=== PATIENT | female | born 1970 | race Caucasian/White ===

== ENCOUNTER 2017-03-12 14:13 | Emergency (ER) | payer MEDICAID ==
[~2017-03-12] VITALS: Ht 154.9 cm; Wt 67.9 kg
[2017-03-12 14:19] VITALS: BP 144/97
[2017-03-12] MEDS ORDERED: LIDOCAINE-MPF 2% ,5ML ONE (14:59)
[2017-03-12] MEDS ORDERED: BUPIVACAINE 0.25% ONE (14:59)
[2017-03-12] MEDS ORDERED: LIDOCAINE 2%, 20ML SQ ONE (15:00)
[2017-03-12] MEDS ORDERED: BUPIVACAINE/PF-EPI 0.25% 1:200K SQ ONE (15:00)
== END 2017-03-12 15:17 | disposition home or self-care (01) ==
LOC: ED 15:01
DX: K04.7 Periapical abscess without sinus (principal); F41.9 Anxiety disorder, unspecified; M19.90 Unspecified osteoarthritis, unspecified site
CPT/HCPCS: 64400

== ENCOUNTER 2017-03-13 09:07 | Emergency (ER) | payer MEDICAID ==
[~2017-03-13] VITALS: Ht 154.9 cm; Wt 68.3 kg
[2017-03-13 09:09] VITALS: BP 123/82
== END 2017-03-13 10:47 | disposition home or self-care (01) ==
LOC: ED 10:30
DX: K02.9 Dental caries, unspecified (principal); G89.29 Other chronic pain; F17.200 Nicotine dependence, unspecified, uncomplicated
CPT/HCPCS: 99281

== ENCOUNTER → 2017-10-07 | Outpatient (CLI) | payer MEDICAID | END | disposition home or self-care (01) | LOC: EDSTATUS 13:45 → CFH 13:57 | PROVIDERS: ATTEND Genetic Counselor, MS | DX: R92.2 Inconclusive mammogram (principal); Z80.3 Family history of malignant neoplasm of breast | CPT/HCPCS: 77066 ==

== ENCOUNTER 2017-11-02 07:34 | Emergency (ER) | payer SELFPAY ==
[~2017-11-02] VITALS: Ht 154.9 cm; Wt 67.4 kg
[2017-11-02 07:36] VITALS: BP 137/72
[2017-11-02] MEDS ORDERED: DIPH,PERTUSS(ACELL),TET VAC/PF 0.5 ML IM-VACC ONE ×2 (07:52→08:00)
[2017-11-02] MEDS ORDERED: LIDOCAINE-MPF 2%, 2ML ONE ×2 (07:59)
[2017-11-02] MEDS ORDERED: SODIUM CHLORIDE FLUSH 10ML SYR IVF ONE (08:00)
[2017-11-02] MEDS ORDERED: MORPHINE SULFATE 4 MG/ML, 1ML IV PRN (08:00)
[2017-11-02] MEDS ORDERED: ONDANSETRON ODT 4 MG PO ONE (08:00)
[2017-11-02] MEDS ORDERED: LIDOCAINE-MPF 1%, 5ML INFIL ONE (08:00)
[2017-11-02] MEDS ORDERED: ONDANSETRON ODT 4 MG ONE (08:20)
[2017-11-02] MEDS ORDERED: AMPICILLIN/SULBACTAM 3 GM in SODIUM CHLORIDE 0.9% 100 ML IV ONE (08:30)
== END 2017-11-02 09:34 | disposition home or self-care (01) ==
LOC: ED 09:15
DX: L03.011 Cellulitis of right finger (principal); G89.29 Other chronic pain
CPT/HCPCS: 10060; 90471; 90715; 96365; 99284; J0295; Q0162

== ENCOUNTER 2019-10-15 20:54 | Inpatient (IN) | payer MEDICAID ==
[~2019-10-15] VITALS: Ht 154.9 cm; Wt 70.2 kg
--- NOTE | 2019-10-15 21:12 | NUR ---
KAVITHA ANDERSON AT BS NOW.
[2019-10-15] MEDS ORDERED: DIAZEPAM 5 MG/ML, 2ML IV ONE (21:30)
[2019-10-15] MEDS ORDERED: SODIUM CHLORIDE FLUSH 10ML SYR IVF ONE ×2 (21:30→23:00)
--- NOTE | 2019-10-15 21:30 | NUR ---
PT MOANING/CRYING D/T ABD PAIN. FRIEND/NEIGHBOR AT BS.
--- NOTE | 2019-10-15 21:39 | NUR ---
CT PENDING LAB/BETA/CREATINE.
[2019-10-15] MEDS ORDERED: DIAZEPAM 5 MG/ML, 2ML ONE (22:16)
--- NOTE | 2019-10-15 22:22 | NUR ---
IV ESTABLISHED BY ANOTHER RN AFTER 2 FAILED ATTEMPTS. PT MEDICATED PER ORDERS. AWAITING LABS & CT. PT UNDERSTANDS POC.
[2019-10-15 22:24] LABS: MEAN CORPUSCULAR HEMOGLOBIN 22.8 pg (27.0-34.8); MEAN CORPUSCULAR HGB CONC 31.6 g/dL (32.4-35.8); MEAN CORPUSCULAR VOLUME 72.2 fL (80-100); MEAN PLATELET VOLUME 8.2 fL (7.4-10.4); PLATELET COUNT 317 x10^3/uL (130-400); RED BLOOD COUNT 4.13 x10^6/uL (3.82-5.3); RED CELL DISTRIBUTION WIDTH 17.2 % (9.6-15.2)
[2019-10-15 22:35] LABS: ALANINE AMINOTRANSFERASE 26 U/L (12-78); ALBUMIN 3.4 g/dL (3.4-5.0); ANION GAP 5 mmol/L (5-15); CALCIUM 8.5 mg/dL (8.5-10.1); CHLORIDE 106 mmol/L (98-107); CREATININE 0.78 mg/dL (0.55-1.02)
--- NOTE | 2019-10-15 22:35 | NUR ---
ERP NOTIFIED THAT PT MORE TACHYCARDIC, HR 100s, TEMP 101.4. STILL IN MODERATE DISTRESS D/T ABD PAIN. ORDERS RC'VD.
[2019-10-15 22:40] LABS: ALKALINE PHOSPHATASE 89 U/L (45-117); BILIRUBIN,TOTAL 0.3 mg/dL (0.2-1.0); TOTAL PROTEIN 7.8 g/dL (6.4-8.2)
[2019-10-15 22:49] LABS: BASOPHILS # (AUTO) 0.04 x10^3/uL (0-0.1); BASOPHILS % (AUTO) 0 % (0-1); EOSINOPHILS # (AUTO) 0.08 x10^3/uL (0-0.4); EOSINOPHILS % (AUTO) 0 % (1-7); LYMPHOCYTES # (AUTO) 1.31 x10^3/uL (1-3.4); LYMPHOCYTES % (AUTO) 6 % (22-44); MD SCAN; MONOCYTES # (AUTO) 0.71 x10^3/uL (0.2-0.8); MONOCYTES % (AUTO) 4 % (2-9); NEUTROPHILS % (AUTO) 90 % (42-75)
[2019-10-15] MEDS ORDERED: CEFTRIAXONE PMX 1GM/50ML 50 ML ONE (22:51)
[2019-10-15] MEDS ORDERED: OMNIPAQUE 350 MG/ML, 100ML BOTTLE ONE (22:56)
[2019-10-15] MEDS ORDERED: ONDANSETRON 2MG/ML, 2ML ONE (22:58)
[2019-10-15] MEDS ORDERED: MORPHINE SULFATE 4 MG/ML, 1ML ONE (22:58)
[2019-10-15] MEDS ORDERED: CEFTRIAXONE PMX 1GM/50ML 50 ML IV ONE (23:00)
[2019-10-15] MEDS ORDERED: MORPHINE SULFATE 4 MG/ML, 1ML IVPush PRN (23:00)
[2019-10-15] MEDS ORDERED: ONDANSETRON 2MG/ML, 2ML IVPush ONE (23:00)
[2019-10-15] MEDS ORDERED: SODIUM CHLORIDE 0.9% 1,000ML IVBOLUS ONE ×2 (23:00→23:30)
--- NOTE | 2019-10-15 23:00 | NUR ---
PER ERP, PT DOES NOT NEED FULL SEPSIS WORKUP.
[2019-10-15] MEDS ORDERED: PARO40TA3 PO (23:06)
--- NOTE | 2019-10-15 23:25 | NUR ---
ER PA WAS IN TO RE-ASSESS PT. PT BEGAN MOANING AGAIN ABOUT LOWER ABD PAIN AFTER RECEIVING MORPHINE.
[2019-10-15] MEDS ORDERED: METRONIDAZOLE PMX 500MG/100ML 100 ML IV ONE (23:30)
[2019-10-15] MEDS ORDERED: HYDROmorphone 2 MG/ML, 1ML IVPush PRN (23:30)
[2019-10-15] MEDS ORDERED: ACETAMINOPHEN 325 MG TABLET PO ONE (23:30)
--- NOTE | 2019-10-15 23:32 | NUR ---
ERP WAS IN TO RE-ASSESS PT.
[2019-10-15] MEDS ORDERED: METRONIDAZOLE PMX 500MG/100ML 100 ML ONE (23:39)
--- NOTE | 2019-10-16 00:08 | NUR ---
ASSISTED PT TO BR VIA WC. INSTRUCTED ON CLEAN CATCH URINE SAMPLE. PT STILL HAVING SIGNIFICANT LOWER ABD PAIN ESPECIALLY WITH MOVEMENT.
--- NOTE | 2019-10-16 00:09 | NUR ---
HOSPITALIST AT NOW.
[2019-10-16 00:25] LABS: MICROSCOPIC AUTO
[2019-10-16] MEDS ORDERED: LIDODERM 5% PATCH TD PRN (00:30)
[2019-10-16] MEDS ORDERED: ONDANSETRON 2MG/ML, 2ML IVPush PRN ×2 (00:30→11:00)
[2019-10-16] MEDS ORDERED: ACETAMINOPHEN 325 MG TABLET PO PRN (00:30)
[2019-10-16] MEDS ORDERED: DOCUSATE 100 MG CAPSULE PO PRN (00:30)
[2019-10-16] MEDS ORDERED: KETOROLAC 30 MG/1 ML IV PRN (00:30)
[2019-10-16 00:39] VITALS: BP 106/66
[2019-10-16 06:56] VITALS: BP 100/63
[2019-10-16] MEDS: METRONIDAZOLE PMX 500MG/100ML 100 ML IV SCH ×3 (08:21→20:21)
[2019-10-16] MEDS ORDERED: ONDANSETRON ODT 4 MG PO PRN (11:00)
[2019-10-16] MEDS: PAROXETINE 20 MG TABLET PO SCH (12:00)
[2019-10-16] MEDS: POTASSIUM CHLORIDE 20 MEQ in SODIUM CHLORIDE 0.45% 1,000 ML IV SCH (12:02)
[2019-10-16 13:09] VITALS: BP 109/52
[2019-10-16] MEDS: morphine SULFATE 10 MG/ML, 1ML IVPush PRN ×2 (14:38→20:21)
[2019-10-16 18:37] VITALS: BP 94/62
[2019-10-16] MEDS: CEFTRIAXONE PMX 1GM/50ML 50 ML IV SCH (23:08)
[2019-10-17] MEDS: METRONIDAZOLE PMX 500MG/100ML 100 ML IV SCH ×4 (02:18→19:34)
[2019-10-17] MEDS: POTASSIUM CHLORIDE 20 MEQ in SODIUM CHLORIDE 0.45% 1,000 ML IV SCH (02:18)
[2019-10-17] MEDS: morphine SULFATE 10 MG/ML, 1ML IVPush PRN ×3 (02:27→22:58)
[2019-10-17 02:29] VITALS: BP 104/71
[2019-10-17 05:11] LABS: HCT (SEDRATE) 26.7 % (34.6-47.8)
[2019-10-17 05:15] LABS: ALBUMIN 2.8 g/dL (3.4-5.0); ANION GAP 3 mmol/L (5-15); CHLORIDE 112 mmol/L (98-107)
[2019-10-17 05:17] LABS: MEAN CORPUSCULAR HEMOGLOBIN 22.1 pg (27.0-34.8); MEAN CORPUSCULAR HGB CONC 30.2 g/dL (32.4-35.8); MEAN CORPUSCULAR VOLUME 73.2 fL (80-100); MEAN PLATELET VOLUME 8.3 fL (7.4-10.4); PLATELET COUNT 251 x10^3/uL (130-400); RED BLOOD COUNT 3.63 x10^6/uL (3.82-5.3); RED CELL DISTRIBUTION WIDTH 18.3 % (9.6-15.2)
[2019-10-17 05:18] LABS: BASOPHILS # (AUTO) 0.03 x10^3/uL (0-0.1); BASOPHILS % (AUTO) 1 % (0-1); EOSINOPHILS % (AUTO) 3 % (1-7); LYMPHOCYTES # (AUTO) 1.39 x10^3/uL (1-3.4); LYMPHOCYTES % (AUTO) 20 % (22-44); MD NO; MONOCYTES # (AUTO) 0.57 x10^3/uL (0.2-0.8); MONOCYTES % (AUTO) 8 % (2-9); NEUTROPHILS # (AUTO) 4.87 x10^3/uL (1.8-6.8); NEUTROPHILS % (AUTO) 69 % (42-75)
[2019-10-17 05:25] LABS: % IRON SATURATION 3 % (20-55); ALANINE AMINOTRANSFERASE 22 U/L (12-78); ALKALINE PHOSPHATASE 75 U/L (45-117); BILIRUBIN,TOTAL 0.4 mg/dL (0.2-1.0); CREATININE 0.58 mg/dL (0.55-1.02); IRON LEVEL 12 mcg/dL (50-170); TOTAL IRON BINDING CAPACITY 391 mcg/dL (250-450); TOTAL PROTEIN 6.3 g/dL (6.4-8.2)
[2019-10-17 06:52] VITALS: BP 106/72
[2019-10-17] MEDS: PAROXETINE 20 MG TABLET PO SCH (10:04)
[2019-10-17] MEDS: KETOROLAC 30 MG/1 ML IVPush SCH ×3 (10:04→21:43)
[2019-10-17] MEDS: IRON SUCROSE COMPLEX 100MG/5ML IV SCH (10:43)
[2019-10-17] MEDS: SENNA/DOCUSATE TABLET PO SCH (10:44)
[2019-10-17] MEDS: POLYETHYLENE GLYCOL 17 GM PACKET PO SCH (10:44)
[2019-10-17] MEDS: LACTATED RINGERS 1,000 ML IV SCH (11:48)
[2019-10-17 12:44] VITALS: BP 119/81
[2019-10-17 18:23] VITALS: BP 131/83
[2019-10-17] MEDS: CEFTRIAXONE PMX 1GM/50ML 50 ML IV SCH (22:50)
[2019-10-18 00:38] VITALS: BP 131/87
[2019-10-18] MEDS: METRONIDAZOLE PMX 500MG/100ML 100 ML IV SCH ×4 (01:43→20:01)
[2019-10-18] MEDS: KETOROLAC 30 MG/1 ML IVPush SCH ×2 (03:25→09:45)
[2019-10-18 05:42] LABS: MEAN CORPUSCULAR HEMOGLOBIN 22.7 pg (27.0-34.8); MEAN CORPUSCULAR HGB CONC 31.6 g/dL (32.4-35.8); MEAN CORPUSCULAR VOLUME 71.9 fL (80-100); MEAN PLATELET VOLUME 8.5 fL (7.4-10.4); PLATELET COUNT 265 x10^3/uL (130-400); RED BLOOD COUNT 3.72 x10^6/uL (3.82-5.3); RED CELL DISTRIBUTION WIDTH 18.4 % (9.6-15.2)
[2019-10-18 06:13] LABS: MD YES
[2019-10-18 06:17] LABS: BAND#(MANUAL) 0.04 x10^3/uL; BANDS%(MANUAL) 1 % (0-7); EOS#(MANUAL) 0.22 x10^3/uL (0.0-0.4); EOS% (MANUAL) 6 % (1-7); LYMPH#(MANUAL) 1.15 x10^3/uL (1-3.4); LYMPHS% (MANUAL) 31 % (22-44); MONOS#(MANUAL) 0.22 x10^3/uL (0.3-2.7); MONOS% (MANUAL) 6 % (2-9); MYELOCYTES# (MANUAL) 0.04 x10^3/uL (0-0); MYELOCYTES% (MANUAL) 1 % (0-0); SEG#(MANUAL) 2.04 x10^3/uL (1.8-6.8); SEGS% (MANUAL) 55 % (42-75)
[2019-10-18 06:18] LABS: <PLATELET ESTIMATE> ADEQUATE; <PLT MORPHOLOGY> NORMAL PLT MORPH; ANISOCYTOSIS 1+; MICROCYTOSIS 2+
[2019-10-18 07:00] VITALS: BP 123/84
[2019-10-18] MEDS: IRON SUCROSE COMPLEX 100MG/5ML IV SCH (08:10)
[2019-10-18] MEDS: SENNA/DOCUSATE TABLET PO SCH (08:10)
[2019-10-18] MEDS: POLYETHYLENE GLYCOL 17 GM PACKET PO SCH (08:11)
[2019-10-18] MEDS: PAROXETINE 20 MG TABLET PO SCH (08:11)
[2019-10-18] MEDS: LACTATED RINGERS 1,000 ML IV SCH (08:12)
[2019-10-18] MEDS ORDERED: METHYLNALTREXONE 12 MG/0.6 ML SYR SQ ONE (10:00)
[2019-10-18 13:18] VITALS: BP 127/80
[2019-10-18] MEDS: OXYcodone IR 5MG TABLET PO PRN ×2 (15:58→22:59)
[2019-10-18 19:01] VITALS: BP 121/81
[2019-10-18] MEDS: CEFTRIAXONE PMX 1GM/50ML 50 ML IV SCH (22:59)
[2019-10-19 01:14] VITALS: BP 131/85
[2019-10-19] MEDS: METRONIDAZOLE PMX 500MG/100ML 100 ML IV SCH (01:52)
[2019-10-19 07:13] VITALS: BP 109/72
[2019-10-19] MEDS ORDERED: OXYC5TAB3 PO (08:39)
[2019-10-19] MEDS ORDERED: CIPR500T87 PO (08:39)
[2019-10-19] MEDS ORDERED: ONDA4TAB13 PO (08:39)
[2019-10-19] MEDS: SENNA/DOCUSATE TABLET PO SCH (08:53)
[2019-10-19] MEDS: POLYETHYLENE GLYCOL 17 GM PACKET PO SCH (08:53)
[2019-10-19] MEDS: PAROXETINE 20 MG TABLET PO SCH (08:53)
[2019-10-19] MEDS: IRON SUCROSE COMPLEX 100MG/5ML IV SCH (08:53)
[2019-10-19] MEDS ORDERED: CIPROFLOXACIN 500 MG TABLET PO SCH (09:00)
== END 2019-10-19 10:15 | disposition home or self-care (01) | DRG 872 ==
LOC: ED 21:22 → EDIP 23:46 → 3N 10-16 00:36 → DCLOUNGE 10-19 10:02
PROVIDERS: ADMIT Family Medicine; ATTEND Hospitalist
DX: A41.9 Sepsis, unspecified organism (principal); A08.4 Viral intestinal infection, unspecified; D25.9 Leiomyoma of uterus, unspecified; D50.0 Iron deficiency anemia secondary to blood loss (chronic); Z80.3 Family history of malignant neoplasm of breast; N93.8 Other specified abnormal uterine and vaginal bleeding; N92.0 Excessive and frequent menstruation with regular cycle; K76.0 Fatty (change of) liver, not elsewhere classified; F41.1 Generalized anxiety disorder; K59.00 Constipation, unspecified; F32.9 Major depressive disorder, single episode, unspecified; F19.10 Other psychoactive substance abuse, uncomplicated; F15.90 Other stimulant use, unspecified, uncomplicated; F12.90 Cannabis use, unspecified, uncomplicated
CPT/HCPCS: 36415; 74177; 80053; 81001; 82607; 82728; 83540; 83550; 83690; 84443; 84703; 85025; 85651; 86140; 86803; 87040; 87086; 87806; 96365; 96367; G0378; J0696; J1756; J1885; J2405; J3360; J3480; Q9967; G0475; J2270; J7030; J7120

== ENCOUNTER 2019-10-21 08:55 | Emergency (ER) | payer MEDICAID ==
[~2019-10-21] VITALS: Ht 154.9 cm; Wt 75.4 kg
[~2019-10-21 08:55] MED LIST: CIPR500T87 PO; ONDA4TAB13 PO; OXYC5TAB3 PO; PARO40TA3 PO
[2019-10-21 09:13] VITALS: BP 128/81
--- NOTE | 2019-10-21 10:11 | NUR ---
Patient given discharge instructions and they have confirmed that they understand the instructions. Patient ambulatory with steady gait.
== END 2019-10-21 10:12 | disposition home or self-care (01) ==
LOC: ED 09:34
DX: I80.8 Phlebitis and thrombophlebitis of other sites (principal)
CPT/HCPCS: 99282

== ENCOUNTER → 2020-01-05 | Outpatient (CLI) | payer MEDICAID | END | disposition home or self-care (01) | LOC: STAR 12:02 | PROVIDERS: ATTEND Obstetrics & Gynecology Female Pelvic Medicine and Reconstructive Surgery | DX: Z01.812 Encounter for preprocedural laboratory examination (principal); Z20.828 Contact with and (suspected) exposure to other viral communicable diseases; N92.6 Irregular menstruation, unspecified; N94.6 Dysmenorrhea, unspecified; N94.10 Unspecified dyspareunia; N81.10 Cystocele, unspecified | CPT/HCPCS: 87635 ==

== ENCOUNTER 2020-01-09 09:33 | Day surgery (SDC) | payer MEDICAID ==
[~2020-01-09] VITALS: Ht 154.9 cm; Wt 74.1 kg
[~2020-01-09 09:33] MED LIST changes: +BUPIVACAINE/PF 0.25% ONE; +EPINEPHRINE 1 MG/ML, 1ML ONE; +NEOMY/POLYMYXIN B GU IRR. 1 ML ONE
[2020-01-09] MEDS ORDERED: CIPR500T3 PO (10:14)
[2020-01-09] MEDS ORDERED: BLAC40CA PO (10:15)
[2020-01-09] MEDS ORDERED: IRON PO (10:15)
[2020-01-09 10:24] VITALS: BP 112/77
[2020-01-09 10:27] LABS: HCG UR SG 1.017 (1.003-1.030)
[2020-01-09] MEDS ORDERED: CHLORHEXIDINE 15 ML UDC MM ONE (10:30)
[2020-01-09] MEDS ORDERED: LACTATED RINGERS 1,000 ML IV SCH (10:30)
[2020-01-09 10:41] LABS: AMPHETAMINE SCREEN, URINE Positive (Negative); BARBITURATE SCREEN, URINE Negative (Negative); BENZODIAZEPINE SCREEN, URINE Negative (Negative); CANNABINOID SCREEN, URINE Positive (Negative); COCAINE SCREEN, URINE Negative (Negative); METHADONE SCREEN, URINE Negative (Negative); OPIATE SCREEN, URINE Negative (Negative)
== END 2020-01-09 11:20 | disposition home or self-care (01) ==
LOC: OUT 09:33
PROVIDERS: ATTEND Obstetrics & Gynecology Female Pelvic Medicine and Reconstructive Surgery
DX: N92.1 Excessive and frequent menstruation with irregular cycle (principal); Z53.8 Procedure and treatment not carried out for other reasons; D25.9 Leiomyoma of uterus, unspecified; N94.6 Dysmenorrhea, unspecified; N94.10 Unspecified dyspareunia; N81.89 Other female genital prolapse; N39.3 Stress incontinence (female) (male); Z79.899 Other long term (current) drug therapy; Z98.890 Other specified postprocedural states
CPT/HCPCS: 80307; 81025; J0171

== ENCOUNTER → 2020-01-18 | Outpatient (CLI) | payer MEDICAID ==
[~2020-01-18] MED LIST changes: +BLAC40CA PO; -BUPIVACAINE/PF 0.25% ONE; +CIPR500T3 PO; -EPINEPHRINE 1 MG/ML, 1ML ONE; +IRON PO; -NEOMY/POLYMYXIN B GU IRR. 1 ML ONE
== END | disposition home or self-care (01) ==
LOC: CLISVCS 12:33
PROVIDERS: ATTEND Anesthesiology
DX: Z20.828 Contact with and (suspected) exposure to other viral communicable diseases (principal)
CPT/HCPCS: 87635

== ENCOUNTER 2020-01-23 08:46 | Day surgery (SDC) | payer MEDICAID ==
[~2020-01-23] VITALS: Ht 154.9 cm; Wt 73.0 kg
[~2020-01-23 08:46] MED LIST changes: +BUPIVACAINE/PF 0.25% ONE; +EPINEPHRINE 1 MG/ML, 1ML ONE; +NEOMY/POLYMYXIN B GU IRR. 1 ML ONE
[2020-01-23 09:21] VITALS: BP 112/77
[2020-01-23] MEDS ORDERED: CHLORHEXIDINE 15 ML UDC ONE (09:27)
[2020-01-23] MEDS ORDERED: LACTATED RINGERS 1,000 ML IV SCH (09:30)
[2020-01-23] MEDS ORDERED: CHLORHEXIDINE 15 ML UDC MM ONE (09:30)
[2020-01-23 09:58] LABS: AMPHETAMINE SCREEN, URINE Negative (Negative); BARBITURATE SCREEN, URINE Negative (Negative); BENZODIAZEPINE SCREEN, URINE Negative (Negative); CANNABINOID SCREEN, URINE Negative (Negative); COCAINE SCREEN, URINE Negative (Negative); METHADONE SCREEN, URINE Negative (Negative); OPIATE SCREEN, URINE Negative (Negative)
[2020-01-23 10:04] LABS: HCG UR SG 1.008 (1.003-1.030)
[2020-01-23] MEDS ORDERED: SUGAMMADEX 200 MG/2 ML IVPush ONE (10:14)
[2020-01-23] MEDS ORDERED: MIDAZOLAM 1 MG/ML, 2ML ONE (12:55)
[2020-01-23] MEDS ORDERED: FENTANYL PF 250 MCG/5ML ONE (12:56)
[2020-01-23] MEDS ORDERED: PROMETHAZINE 25 MG SUPP PR PRN (13:00)
[2020-01-23] MEDS ORDERED: LORazepam 2 MG/ML, 1ML IVPush PRN (13:00)
[2020-01-23] MEDS ORDERED: hydrALAzine 20 MG/ML, 1ML IV PRN (13:00)
[2020-01-23] MEDS ORDERED: PROMETHAZINE 25 MG/ML, 1ML IVPush PRN (13:00)
[2020-01-23] MEDS ORDERED: LABETALOL 5MG/ML, 20ML IV PRN (13:00)
[2020-01-23] MEDS ORDERED: ACETAMINOPHEN 325 MG TABLET PO PRN (13:00)
[2020-01-23] MEDS ORDERED: ONDANSETRON 2MG/ML, 2ML IVPush PRN ×2 (13:00→16:30)
[2020-01-23] MEDS ORDERED: HYDROmorphone 1 MG/ML, 1ML INJ IVPush PRN (13:00)
[2020-01-23] MEDS ORDERED: OXYcodone 5 MG/5 ML ORAL.SOL UDC PO PRN (13:00)
[2020-01-23] MEDS ORDERED: SUCCINYLCHOLINE 20 MG/ML, 10ML ONE (14:14)
[2020-01-23] MEDS ORDERED: CEFAZOLIN 1,000 MG ONE (14:14)
[2020-01-23] MEDS ORDERED: PROPOFOL 10 MG/ML, 20ML ONE (14:14)
[2020-01-23] MEDS ORDERED: GLYCOPYRROLATE 0.2MG/1ML, 5ML ONE (14:14)
[2020-01-23] MEDS ORDERED: NEOSTIGMINE 1 MG/ML, 10ML ONE (14:14)
[2020-01-23] MEDS ORDERED: ROCURONIUM 10MG/ML,5ML ONE (14:14)
[2020-01-23] MEDS ORDERED: DEXAMETHASONE 4 MG/ML, 1ML ONE (14:14)
[2020-01-23] MEDS ORDERED: ONDANSETRON 2MG/ML, 2ML ONE (14:14)
[2020-01-23] MEDS ORDERED: METHOCARBAMOL 1,000 MG in DEXTROSE 5% 100 ML IV PRN (15:00)
[2020-01-23] MEDS ORDERED: ACETAMINOPHEN 650 MG/20.3 ML UDC ONE (15:06)
[2020-01-23] MEDS ORDERED: OXYcodone 5 MG/5 ML ORAL.SOL UDC ONE (15:06)
[2020-01-23] MEDS ORDERED: LORazepam 2 MG/ML, 1ML ONE (15:07)
[2020-01-23] MEDS ORDERED: FENTANYL PF 100 MCG/2ML ONE (15:07)
[2020-01-23] MEDS: FENTANYL PF 100 MCG/2ML IV PRN ×2 (15:08→15:25)
[2020-01-23] MEDS ORDERED: OXYcodone/APAP 5/325MG TABLET PO PRN (16:30)
[2020-01-23] MEDS ORDERED: HYDROmorphone 2 MG/ML, 1ML IVPush PRN (16:30)
[2020-01-23] MEDS ORDERED: IBUPROFEN 600 MG TABLET PO PRN (16:30)
[2020-01-23] MEDS ORDERED: KETOROLAC 30 MG/1 ML IVPush PRN (16:30)
[2020-01-23] MEDS ORDERED: HYDROcodone/APAP 5/325 TABLET PO PRN (16:30)
[2020-01-23] MEDS ORDERED: KETOROLAC 30 MG/1 ML ONE (16:36)
== END 2020-01-23 19:00 | disposition home or self-care (01) ==
LOC: OUT 08:46
PROVIDERS: ATTEND Obstetrics & Gynecology Female Pelvic Medicine and Reconstructive Surgery
DX: D25.1 Intramural leiomyoma of uterus (principal); N92.1 Excessive and frequent menstruation with irregular cycle; N94.6 Dysmenorrhea, unspecified; N94.10 Unspecified dyspareunia; N81.11 Cystocele, midline; N81.5 Vaginal enterocele; N81.6 Rectocele; N81.89 Other female genital prolapse; N39.3 Stress incontinence (female) (male); N80.0 Endometriosis of uterus; N72 Inflammatory disease of cervix uteri; N87.9 Dysplasia of cervix uteri, unspecified; N83.292 Other ovarian cyst, left side; R10.2 Pelvic and perineal pain; F17.210 Nicotine dependence, cigarettes, uncomplicated; Z79.899 Other long term (current) drug therapy
CPT/HCPCS: 57265; 57282; 57288; 58552; 80307; 81025; 88307; C1771; J0171; J0690; J1100; J1885; J2060; J2250; J2405; J2704; J2710; J2800; J3010; J7120; J0330

== ENCOUNTER 2020-02-04 18:11 | Emergency (ER) | payer MEDICAID ==
[~2020-02-04] VITALS: Ht 154.9 cm; Wt 71.9 kg
[~2020-02-04 18:11] MED LIST changes: -BUPIVACAINE/PF 0.25% ONE; -EPINEPHRINE 1 MG/ML, 1ML ONE; -NEOMY/POLYMYXIN B GU IRR. 1 ML ONE
--- NOTE | 2020-02-04 18:35 | NUR ---
First contact with pt. Pt reports hysterectomy approximately 2 weeks ago. Pt reports starting today had two episodes of a small amount of brownish blood from vagina. Pt also reports foul odor from vagina after surgery and is still present. Pt denies pain, no other complaint. Pt placed in gown, positioned for comfort in bed. Continuous oxygen and BP monitors applied, all safety measures observed.
[2020-02-04] MEDS ORDERED: SODIUM CHLORIDE FLUSH 10ML SYR IVF ONE (19:00)
--- NOTE | 2020-02-04 19:07 | NUR ---
BEDSIDE REPORT FROM YOLANDA ROSAS. PT RESTING IN [facility] NOTED. PT DENIES NEED FOR PAIN/NAUSEA MEDICATIONS. IV ESTABLISHED. LABS DRAWN. IMPROVEMENT IN HR FROM TRIAGE. PT AMBULATED STEADILY TO BATHROOM WO DIFFICULTY. PT UPDATED TO POC (CT/RESULTS/RECHECK) AND DEMONSTRATES UNDERSTANDING.
[2020-02-04 19:20] LABS: BASOPHILS % (AUTO) 1 % (0-1); EOSINOPHILS % (AUTO) 7 % (1-7); LYMPHOCYTES % (AUTO) 24 % (22-44); MEAN CORPUSCULAR HEMOGLOBIN 29.5 pg (27.0-34.8); MEAN CORPUSCULAR HGB CONC 34.6 g/dL (32.4-35.8); MEAN PLATELET VOLUME 7.5 fL (7.4-10.4); MONOCYTES % (AUTO) 9 % (2-9); NEUTROPHILS % (AUTO) 60 % (42-75); PLATELET COUNT 318 x10^3/uL (130-400); RED BLOOD COUNT 4.48 x10^6/uL (3.82-5.3); RED CELL DISTRIBUTION WIDTH 14.5 % (9.6-15.2)
[2020-02-04 19:27] LABS: ALBUMIN 3.8 g/dL (3.4-5.0); ANION GAP 5 mmol/L (5-15); CALCIUM 9.4 mg/dL (8.5-10.1); CHLORIDE 107 mmol/L (98-107); CREATININE 1.02 mg/dL (0.55-1.02)
[2020-02-04 19:28] LABS: MD NO
--- NOTE | 2020-02-04 19:45 | NUR ---
PT RETURNED FROM CT. NAD NOTED.
[2020-02-04 20:16] VITALS: BP 118/80
--- NOTE | 2020-02-04 20:16 | NUR ---
DC EDUCATION PROVIDED, PT DEMONSTRATES UNDERSTANDING. PT AMBULATED STEADILY TO DC WITH RN.
[2020-02-04] MEDS ORDERED: OMNIPAQUE 350 MG/ML, 100ML BOTTLE ONE (23:01)
== END 2020-02-04 20:18 | disposition home or self-care (01) ==
LOC: ED 19:16
DX: N99.841 Postprocedural hematoma of a genitourinary system organ or structure following other procedure (principal); F17.200 Nicotine dependence, unspecified, uncomplicated; Z90.710 Acquired absence of both cervix and uterus
CPT/HCPCS: 36415; 72193; 80048; 82040; 85025; 99285; Q9967